=== PATIENT | male | born 1960 | race Caucasian/White ===

== ENCOUNTER 2021-03-01 14:00 | Outpatient (RCR) | payer OTHER, SELFPAY ==
--- NOTE | 2021-03-01 16:15 | PC.NURSE ---
Patient called and stated he was in the parking lot ready to come in for his appointment. Nurses were with another patient in a medical emergency. Attempted to call Mr Sequeira at 1515 to let him know there was going to be a delayed. Patient did not answer phone. Attempted multiple times to call the patient with no success. Nurse walked parking lot 2 times looking for the patient without success. Patient has not returned calls.
--- NOTE | 2021-03-01 16:29 | PC.NURSE ---
Called and informed 's office that he did not show for his appointment.
== END 2021-03-07 07:52 ==
LOC: AMCINF 14:00
PROVIDERS: Visit Provider Internal Medicine Hematology & Oncology
DX: Z23 Encounter for immunization (principal); U07.1 COVID-19
CPT/HCPCS: 99199

== ENCOUNTER 2023-01-30 09:49 | Outpatient (CLI) | payer OTHER, SELFPAY ==
--- NOTE | ~2023-01-30 | MR_ITS ---
MRI of the left knee Clinical history: Pain Technique: Coronal proton density and proton density-weighted images, sagittal proton-density and T2 fat-sat images, and axial proton-density fat-saturated images were acquired. Findings: Anterior and posterior cruciate ligaments are intact. Medial collateral ligament and the la teral collateral ligament complex are intact. Popliteus tendon is intact. There is a radial tear at the posterior root of the medial meniscus. No lateral meniscal tear identif ied. There is patchy mild to moderate chondromalacia the medial compartment, especially medial femoral con dyle. There is mild chondromalacia of the lateral compartment. There is patchy moderate chondromalaci a of the femoral trochlea. There is moderate to high-grade chondromalacia along the medial patellar f acet. Bone marrow signals are unremarkable. Moderate to large joint effusion is present. No Coyle's cyst. There is prepatellar subcutaneous soft tissue edema, as well as nonspecific soft tissue edema posterior to the distal femur. Extensor mechan ism is intact. Impression: Radial tear at the posterior root of the medial meniscus. 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 Moderate to large joint effusion with nonspecific soft tissue edema, as detailed above. Reviewed, dictated and finalized at location . Impression: Radial tear at the posterior root of the medial meniscus. 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 Moderate to large joint effusion with nonspecific soft tissue edema, as detaile d above.
== END 2023-01-30 09:50 | disposition home or self-care (01) ==
PROVIDERS: Visit Provider Orthopaedic Surgery
DX: S83.242A Other tear of medial meniscus, current injury, left knee, initial encounter (principal); M17.12 Unilateral primary osteoarthritis, left knee; M25.462 Effusion, left knee
CPT/HCPCS: 73721